=== PATIENT | female | born 1995 | race Caucasian/White ===

== ENCOUNTER 2022-11-03 10:25 | Emergency (ER) | payer BC ==
[2022-11-03] MEDS ORDERED: Sodium Chloride 0.9% 2.5 ML Syringe FLUSH PRN (13:33)
[2022-11-03] MEDS ORDERED: Sodium Chloride 0.9% 10 ML Syringe FLUSH PRN (13:33)
[2022-11-03] MEDS ORDERED: Morphine 4 MG/ML Syringe IVPUSH STA (13:34)
[2022-11-03] MEDS ORDERED: Ondansetron 4 MG/2 ML SDV IVPUSH STA (13:34)
[2022-11-03] MEDS ORDERED: Sodium Chloride 0.9% 1,000 ML IV STA (13:34)
[2022-11-03 14:44] LABS: CARBON DIOXIDE,CO2 26.5 mmol/L (21.0-32.0); POTASSIUM,K 3.7 mmol/L (3.5-5.1)
== END 2022-11-03 17:22 | disposition home or self-care (01) ==
LOC: MW.ED 10:25
DX: O99.891 Other specified diseases and conditions complicating pregnancy (principal); R10.11 Right upper quadrant pain; O99.611 Diseases of the digestive system complicating pregnancy, first trimester; K30 Functional dyspepsia; Z88.5 Allergy status to narcotic agent
CPT/HCPCS: 36415; 76705; 80053; 81001; 83690; 84702; 85025; 96361; 96374; 96375; 99284; J2270; J2405; J3490; J7030

== ENCOUNTER 2023-07-14 07:54 | Inpatient (IN) | payer BC ==
[2023-07-14] MEDS ORDERED: Lidocaine 1% 50 ML MDV INJECT PRN (08:23)
[2023-07-14] MEDS ORDERED: Ondansetron 4 MG/2 ML SDV IVPUSH PRN (08:23)
[2023-07-14] MEDS ORDERED: Sodium Chloride 0.9% 20 ML SDV IV PRN (08:23)
[2023-07-14] MEDS ORDERED: Water For Irrigation,Sterile 1,000 ML Container IRR PRN (08:23)
[2023-07-14] MEDS ORDERED: Tranexamic Acid IN NACL,ISO-OS 1,000 MG in Premix Bag 1 BAG IV PRN ×2 (08:23)
[2023-07-14] MEDS ORDERED: Carboprost Tromethamine 250 MCG/1 mL Vial IM PRN (08:23)
[2023-07-14] MEDS ORDERED: Butorphanol 1 MG/ML SDV IVPUSH PRN (08:23)
[2023-07-14] MEDS ORDERED: Sodium Chloride 0.9% 2.5 ML Syringe FLUSH PRN (08:23)
[2023-07-14] MEDS ORDERED: Methylergonovine 0.2 MG/1 ML Amp IM PRN (08:23)
[2023-07-14] MEDS ORDERED: Misoprostol 200 MCG Tab PO PRN (08:23)
[2023-07-14] MEDS ORDERED: Sodium Chloride 0.9% 10 ML Syringe FLUSH PRN (08:23)
[2023-07-14] MEDS ORDERED: Oxytocin/0.9 % Sodium Chloride 30 UNIT/500 ML BAG IV SCH ×2 (08:30→11:30)
[2023-07-14] MEDS: Lactated Ringers 1,000 ML IV SCH (08:47)
[2023-07-14 08:58] LABS: HEMATOCRIT 35.1 % (36.0-46.0); HEMOGLOBIN 11.5 g/dL (12.0-16.0); MEAN CORPUSCULAR HEMOGLOBIN 28.3 pg (27.0-32.0); MEAN CORPUSCULAR HGB CONC 32.8 g/dL (31.0-37.0); MEAN CORPUSCULAR VOLUME 86.5 fL (80.0-98.0); MEAN PLATELET VOLUME 9.5 fL (7.40-12.00); RED BLOOD CELL COUNT 4.06 M/uL (4.30-5.90); WHITE BLOOD CELL COUNT,WBC 7.41 K/uL (4.0-11.0)
[2023-07-14] MEDS ORDERED: Ampicillin 2 GM in Sodium Chloride 0.9% 100 ML IV ONE (09:00)
[2023-07-14] MEDS ORDERED: ePHEDrine 50 MG/ML SDV IVPUSH PRN ×2 (10:42)
[2023-07-14] MEDS ORDERED: Phenylephrine HCl 0.5 MG/5 ML AMP IVPUSH PRN (10:42)
[2023-07-14] MEDS ORDERED: Ropivacaine HCl/PF 400 MG in Premix Bag 1 BAG EPIDUR SCH (10:45)
[2023-07-14] MEDS ORDERED: Terbutaline 1 MG/ML SDV SUBCUT PRN (11:17)
[2023-07-14] MEDS ORDERED: Misoprostol 25 MCG (1/4 of 100 MCG) Tab VAG PRN (11:17)
[2023-07-14] MEDS ORDERED: Ampicillin 1 GM in Sodium Chloride 0.9% 50 ML IV SCH (13:00)
[2023-07-14] MEDS ORDERED: Ampicillin 1 GM Vial ONE (14:11)
[2023-07-14] MEDS: Ampicillin 1 GM in Sodium Chloride 0.9% 50 ML IV SCH ×3 (14:20→23:00)
[2023-07-14] MEDS: Misoprostol 25 MCG (1/4 of 100 MCG) Tab VAG PRN ×2 (16:32→20:50)
[2023-07-14] MEDS ORDERED: Calcium Carbonate 500 MG Tab.Chew PO PRN (17:30)
[2023-07-14] MEDS ORDERED: Nalbuphine 10 MG/0.5 ML Syringe IVPUSH PRN (22:00)
[2023-07-15] MEDS ORDERED: Dexmedetomidine 200 MCG/2 ML SDV ONE (00:18)
[2023-07-15] MEDS: Lactated Ringers 1,000 ML IV SCH ×2 (00:27→07:44)
[2023-07-15] MEDS: Ampicillin 1 GM in Sodium Chloride 0.9% 50 ML IV SCH ×3 (03:11→10:10)
[2023-07-15] MEDS ORDERED: Acetaminophen 500 MG Tab PO ONE (06:50)
[2023-07-15] MEDS ORDERED: Tranexamic Acid IN NACL,ISO-OS 1,000 MG in Premix Bag 1 BAG IV PRN ×2 (11:58)
[2023-07-15] MEDS ORDERED: Acetaminophen 500 MG Tab PO PRN (11:58)
[2023-07-15] MEDS ORDERED: Methylergonovine 0.2 MG/1 ML Amp IM PRN (11:58)
[2023-07-15] MEDS ORDERED: Benzocaine/Menthol 20%-0.5% Spray 78 GM Cannister TOP PRN (11:58)
[2023-07-15] MEDS ORDERED: Bisacodyl 10 MG Supp RECTAL PRN (11:58)
[2023-07-15] MEDS ORDERED: Docusate Sodium 100 MG Cap PO PRN (11:58)
[2023-07-15] MEDS ORDERED: Ibuprofen 400 MG Tab PO PRN (11:58)
[2023-07-15] MEDS ORDERED: Lanolin 100% Cream 7 GM Tube TOP PRN (11:58)
[2023-07-15 12:42] LABS: PH,UMBILICAL ARTERIAL 7.132 (7.18-7.38)
[2023-07-15 12:43] LABS: PH,UMBILICAL VENOUS 7.285 (7.25-7.45)
[2023-07-15] MEDS: Witch Hazel Medicated Pads 40/Jar TOP PRN (13:45)
[2023-07-15] MEDS: Ibuprofen 800 MG Tab PO PRN ×2 (13:46→20:55)
[2023-07-15] MEDS: Acetaminophen 500 MG Tab PO PRN (13:46)
[2023-07-15] MEDS: traMADol 50 MG Tab PO PRN (15:21)
[2023-07-16] MEDS: traMADol 50 MG Tab PO PRN ×3 (01:05→17:59)
[2023-07-16 05:42] LABS: HEMATOCRIT 29.7 % (36.0-46.0); HEMOGLOBIN 9.7 g/dL (12.0-16.0)
[2023-07-16] MEDS: Ibuprofen 800 MG Tab PO PRN ×3 (06:53→22:34)
[2023-07-16] MEDS: Prenatal Multivitamin with Calcium/Folic Acid/Iron Tab PO SCH (08:14)
[2023-07-16] MEDS: Acetaminophen 500 MG Tab PO PRN ×3 (08:14→22:32)
[2023-07-16] MEDS: Iron Polysaccharides Complex 150 MG Cap PO SCH (08:14)
[2023-07-17] MEDS: traMADol 50 MG Tab PO PRN (05:25)
[2023-07-17] MEDS: Iron Polysaccharides Complex 150 MG Cap PO SCH (08:36)
[2023-07-17] MEDS: Prenatal Multivitamin with Calcium/Folic Acid/Iron Tab PO SCH (08:36)
[2023-07-17] MEDS: Ibuprofen 800 MG Tab PO PRN (12:28)
[2023-07-17] MEDS: Witch Hazel Medicated Pads 40/Jar TOP PRN (13:31)
== END 2023-07-17 13:54 | disposition home or self-care (01) | DRG 560 ==
LOC: MW.OBCHECK 07:54 → MW.OB 07:56 → MW.OBCHECK 08:23 → MW.OB 08:24 → OBSVTOIN 07-15 11:58 → MW.OB 07-15 14:37
PROVIDERS: ADMIT Obstetrics & Gynecology; ATTEND Obstetrics & Gynecology
PROC: 10E0XZZ Delivery of Products of Conception, External Approach (ICD-10-PCS; principal; 2023-07-15)
PROC: 3E033VJ Introduction of Other Hormone into Peripheral Vein, Percutaneous Approach (ICD-10-PCS; 2023-07-15)
PROC: 0KQM0ZZ Repair Perineum Muscle, Open Approach (ICD-10-PCS; 2023-07-15)
PROC: 3E0R3BZ Introduction of Anesthetic Agent into Spinal Canal, Percutaneous Approach (ICD-10-PCS; 2023-07-15)
PROC: 00HU33Z Insertion of Infusion Device into Spinal Canal, Percutaneous Approach (ICD-10-PCS; 2023-07-15)
DX: O42.02 Full-term premature rupture of membranes, onset of labor within 24 hours of rupture (principal); O70.1 Second degree perineal laceration during delivery; O99.824 Streptococcus B carrier state complicating childbirth; O99.214 Obesity complicating childbirth; O99.344 Other mental disorders complicating childbirth; F32.A Depression, unspecified; Z79.899 Other long term (current) drug therapy; Z37.0 Single live birth; Z3A.37 37 weeks gestation of pregnancy; Z88.5 Allergy status to narcotic agent; Z98.890 Other specified postprocedural states
CPT/HCPCS: 01967; 36415; 59025; 59409; 82803; 84112; 85014; 85018; 85027; 86592; 86850; 86900; 86901; A9270-GY; J0290; J2300; J2405; J2590; J3490; J7120

== ENCOUNTER 2023-10-25 00:28 | Emergency (ER) | payer BC ==
[2023-10-25] MEDS ORDERED: Ondansetron 4 MG/2 ML SDV IVPUSH ONE (00:40)
[2023-10-25] MEDS ORDERED: Sodium Chloride 0.9% 1,000 ML IV ONE (00:40)
[2023-10-25] MEDS ORDERED: Morphine 4 MG/ML Syringe IVPUSH ONE (00:46)
[2023-10-25 01:37] LABS: CORONAVIRUS COVID-19 NAA NEGATIVE (NEGATIVE); INFLUENZA A NAA NEGATIVE (NEGATIVE); INFLUENZA B NAA NEGATIVE (NEGATIVE)
[2023-10-25 01:45] LABS: BASOPHILS ABSOLUTE AUTO 0.08 K/uL (0.00-0.20); BASOPHILS PERCENT AUTO 0.7 % (0.0-1.0); EOSINOPHILS ABSOLUTE AUTO 0.05 K/uL (0.00-0.45); EOSINOPHILS PERCENT AUTO 0.4 % (0.0-6.0); HEMATOCRIT 40.3 % (37.0-47.0); HEMOGLOBIN 13.4 g/dL (12.0-16.0); IMMATURE GRAN ABSOLUTE AUTO 0.32 K/uL (0.00-0.05); IMMATURE GRAN PERCENT AUTO 2.8 % (0.0-0.4); LYMPHOCYTES ABSOLUTE AUTO 0.74 K/uL (1.00-4.80); LYMPHOCYTES PERCENT AUTO 6.4 % (24.0-44.0); MEAN CORPUSCULAR HEMOGLOBIN 28.2 pg (28.0-32.0); MEAN CORPUSCULAR HGB CONC 33.3 g/dL (32.0-36.0); MEAN CORPUSCULAR VOLUME 84.7 fL (83.0-99.0); MEAN PLATELET VOLUME 9.3 fL (9.4-12.3); MONOCYTES ABSOLUTE AUTO 0.69 K/uL (0.00-0.80); MONOCYTES PERCENT AUTO 5.9 % (0.0-8.0); NEUTROPHILS ABSOLUTE AUTO 9.72 K/uL (1.80-7.70); NEUTROPHILS PERCENT AUTO 83.8 % (41.0-71.0); PLATELET COUNT,PLT 229 K/uL (150-400); RED BLOOD CELL COUNT 4.76 M/uL (4.10-5.30)
[2023-10-25 02:10] LABS: A/G RATIO 0.9 (0.9-1.6); ALBUMIN 3.8 g/dL (3.4-5.0); BILIRUBIN TOTAL 0.6 mg/dL (0.2-1.0); CALCIUM 8.9 mg/dL (8.5-10.1); CARBON DIOXIDE,CO2 25.3 mmol/L (21.0-32.0); CREATININE 1.1 mg/dL (0.6-1.0); EST CRCL DRUG DOSING (CG) 62.42 mL/min; MAGNESIUM 1.8 mg/dL (1.8-2.4); POTASSIUM,K 4.3 mmol/L (3.5-5.1); PROTEIN TOTAL,TP 8.1 g/dL (6.4-8.2)
== END 2023-10-25 02:47 | disposition home or self-care (01) ==
LOC: MW.ED 00:28
DX: K52.9 Noninfective gastroenteritis and colitis, unspecified (principal); Z20.822 Contact with and (suspected) exposure to COVID-19; Z88.5 Allergy status to narcotic agent; E66.9 Obesity, unspecified; Z68.38 Body mass index [BMI] 38.0-38.9, adult
CPT/HCPCS: 0240U; 36415; 80053; 83690; 83735; 84703; 85025; 96361; 96374; 96375; 99284; J2270; J2405; J7030